=== PATIENT | female | born 1990 | race Two or more races ===

== ENCOUNTER 2018-09-27 06:50 | Inpatient (IN) | payer OTHER ==
[2018-09-27] MEDS ORDERED: CITRIC ACID/SODIUM CITRATE 30 ML UNIT-DOSE CUP PO ONE (07:30)
[2018-09-27] MEDS ORDERED: ELECTROLYTE-148 SOLN 1,000 ML IV SCH ×3 (07:30→09:15)
[2018-09-27] MEDS ORDERED: AMPICILLIN - 2 GM in SODIUM CHLORIDE 100 ML IVPB ONE (07:30)
[2018-09-27] MEDS ORDERED: AMPICILLIN SODIUM 2 GM VIAL ONE (07:38)
[2018-09-27 08:01] LABS: BASO % 0.3 % (0-2.0); EOS % 1.1 % (0-4.5); HEMATOCRIT 32.6 % (32.4-45.2); HEMOGLOBIN 11.2 GM/dL (10.7-15.3); LYMPH % 26.1 % (8-40); MCH 28.8 pg (25.7-33.7); MCHC 34.4 g/dl (32.0-36.0); MEAN CELL VOLUME 83.7 fl (80-96); MEAN PLT VOLUME 10.6 fl (7.5-11.1); MONO % 6.1 % (3.8-10.2); NEUT % 66.4 % (42.8-82.8); PLATELET COUNT 242 K/MM3 (134-434); RBC 3.89 M/mm3 (3.60-5.2); RDW 14.3 % (11.6-15.6); WHITE BLOOD COUNT 7.7 K/mm3 (4.0-10.0)
[2018-09-27 08:04] VITALS: BMI 39.6
[2018-09-27 08:17] LABS: ANION GAP 10 MMOL/L (8-16); BLOOD UREA NITROGEN 7 mg/dL (7-18); CALCIUM 8.3 mg/dL (8.5-10.1); CHLORIDE 109 mmol/L (98-107); CO2 21 mmol/L (21-32); CREATININE 0.6 mg/dL (0.55-1.3); GLUCOSE,RANDOM 100 mg/dL (74-106); POTASSIUM 4.3 mmol/L (3.5-5.1); SODIUM 141 mmol/L (136-145)
[2018-09-27 08:24] LABS: INR 0.93 (0.83-1.09)
[2018-09-27 08:26] LABS: ACTIVATED PTT 24.7 SECONDS (25.2-36.5)
[2018-09-27] MEDS ORDERED: OXYTOCIN 20 UNITS in 0.9% NS 40 UNIT/2,000 ML INFUS.BAG IV ONE (08:32)
[2018-09-27] MEDS ORDERED: morphine SULFATE/Preservative Free 0.5 MG/ML (1cc Syringe) ONE (08:34)
--- NOTE | 2018-09-27 09:03 | HP ---
Past Medical History - Primary Care Physician PCP:: Courtney Ashton - Admission Chief Complaint: 27yo P 0 @ 36.2 with PROM of twin A, clear, contructions; Twin A - Breech presentation History of Present Illness: 1. Di/Di spontaneous twins 2. Abnormal GCT - GTT one abnormal 3. Flu shot declined 4. Tdap recieved 5. GBS pending History Source: Patient, Medical Record Limitations to Obtaining History: No Limitations - Past Medical History ...: 3 ...Para: 0 ...Term: 0 ...: 0 ...Spon : 1 ...Induced : 1 ...Multiple Gestation: 0 ...LMP: 01/19/18 ... Weeks Gestation by Dates: 35.6 ...EDC by Dates: 10/26/18 ...EDC by Sono: 10/23/18 - Past Surgical History Past Surgical History: Yes: None Hx Myomectomy: No Hx Transabdominal Cerclage: No - Smoking History Smoking history: Never smoked Have you smoked in the past 12 months: No - Alcohol/Substance Use Hx Alcohol Use: No History of Substance Use: reports: None - Social History History of Recent Travel: No Home Medications - Allergies Allergies/Adverse Reactions: Allergies Allergy/AdvReac Type Severity Reaction Status Date / Time No Known Allergies Allergy Verified 09/27/18 07:33 - Home Medications Home Medications: Ambulatory Orders Vitamins (Sjr) - 1 tab PO DAILY 09/23/18 Family Disease History - Family Disease History Family Disease History: Diabetes: Mother, Other: Brother (seizure disorder) Other Family History: MGM breast CA, Lupus Review of Systems - Review of Systems Constitutional: reports: No Symptoms Eyes: reports: No Symptoms HENT: reports: No Symptoms Neck: reports: No Symptoms Cardiovascular: reports: No Symptoms Respiratory: reports: No Symptoms Gastrointestinal: reports: No Symptoms Genitourinary: reports: No Symptoms Breasts: reports: No Symptoms Reported Musculoskeletal: reports: No Symptoms Integumentary: reports: No Symptoms Neurological: reports: No Symptoms Endocrine: reports: No Symptoms Hematology/Lymphatic: reports: No Symptoms Psychiatric: reports: No Symptoms Physical Exam - Maternity Vital Signs: Vital Signs Temperature 98.5 F 09/27/18 07:45 Pulse Rate 103 H 09/27/18 07:45 Respiratory Rate 18 09/27/18 07:45 Blood Pressure 129/78 09/27/18 07:45 O2 Sat by Pulse Oximetry (%) Constitutional: Yes: Well Nourished, Obese Eyes: Yes: WNL, Conjunctiva Clear HENT: Yes: WNL, Atraumatic, Normocephalic Neck: Yes: WNL, Supple, Trachea Midline Cardiovascular: Yes: WNL, Regular Rate and Rhythm Lungs: Clear to auscultation Breast(s): Yes: WNL - Abdominal Exam/OB Fundal Height: 40 Number of Fetuses: Multiple Presentation: Breech, Twins Contractions: Yes Regularity: Irregular Intensity: Mild Monitor Mode: External Heart Rate (range): 140/140 Heart Rate Location: Midline Category: I Accelerations: Uniform Decelerations: None - Vaginal Exam/OB Vaginal Bleediing: No Speculum Exam: No Dilatation (cm): 3 Effacement (%): 50 Amniotic Membrane Status: Ruptured Nitrazine Test: Positive Amniotic Fluid: Yes: Clear Presentation: Lance Breech Station: -3 - Physical Exam Musculoskeletal: Yes: WNL Extremities: Yes: WNL Edema: No Integumentary: Yes: WNL ...Motor Strength: WNL Psychiatric: Yes: WNL, Alert, Oriented - Labs Lab Results: Opos/RI/NR/HepB-neg/HIV - neg/ GCT 154 - GTT neg CBC, BMP 09/27/18 07:45 09/27/18 07:45 Assessment/Plan 27yo P0 @ 36.2weeks with Br/Vtx twins, PROM in early labor Admit for primary C/S. The pt is not in labor. The fetus with Category I tracing. The decision was made to proceed with delivery by C/S. We discussed the risks and benefits of C/S at length, including but not limited to scarring, pain, bleeding, infection, injury to underlying organs and structures, need for additional surgery to repair/treat any problems or complications, complications/injuries, etc. The pt verbalized her understanding and requested to proceed with surgery NPO/IVF/Antibiotic prophylaxis/ Labs/Anesthesia aware.
[2018-09-27] MEDS ORDERED: GENTAMICIN SO4 80 MG/2 ML VIAL ONE (09:15)
[2018-09-27] MEDS ORDERED: PHENYLEPHRINE HCL 10 MG/1 ML SINGLE DOSE VIAL ONE (09:21)
[2018-09-27] MEDS ORDERED: OXYTOCIN 20 UNITS in 0.9% NS 20 UNIT/1,000 ML INFUS.BAG IV ONE ×2 (09:58→12:15)
[2018-09-27] MEDS ORDERED: ENOXAPARIN NA (PORCINE) 40 MG/0.4 ML DISP.SYRIN SQ SCH (10:00)
[2018-09-27] MEDS ORDERED: ONDANSETRON 4 MG/2 ML VIAL IVPUSH PRN (10:05)
[2018-09-27 10:58] LABS: ARTERIAL BLD GAS O2 SATURATION 20.8 % (90-98.9); ARTERIAL BLOOD GAS BASE EXCESS -1.5 meq/l (-2-2); ARTERIAL BLOOD GAS PCO2 55.3 mmHg (35-45); ARTERIAL BLOOD GAS pH 7.29 (7.35-7.45)
[2018-09-27 11:05] LABS: VENOUS PC02 47.7 mmHg (38-52); VENOUS PH 7.33 (7.32-7.42); VENOUS PO2 20.8 mmHg (28-48)
[2018-09-27 11:11] LABS: ARTERIAL BLOOD GAS PO2 15.4 mmHg (80-100)
[2018-09-27 11:14] LABS: ARTERIAL BLD GAS O2 SATURATION 41.2 % (90-98.9); ARTERIAL BLOOD GAS BASE EXCESS -2.7 meq/l (-2-2); ARTERIAL BLOOD GAS PCO2 43.2 mmHg (35-45); ARTERIAL BLOOD GAS pH 7.34 (7.35-7.45)
[2018-09-27] MEDS ORDERED: diphenhydrAMINE HCL 25 MG CAPSULE (FP) PO PRN (11:22)
[2018-09-27] MEDS ORDERED: oxyCODONE HCL 5 MG TABLET PO PRN (11:22)
[2018-09-27] MEDS ORDERED: IBUPROFEN 800 MG/8 ML IJ IVPB PRN (11:22)
[2018-09-27] MEDS ORDERED: METHYLERGONOVINE MALEATE 0.2 MG/1 ML AMP IM PRN (11:22)
--- NOTE | 2018-09-27 11:22 | OP ---
Operative Note - Note: Operative Date: 09/27/18 Pre-Operative Diagnosis: 27yo P0 @ 36.2 with twins, PROM in labor, Breech/Vertex Operation: Primary c/section Findings: Twin A Breech Twin B Vertex Normal bilateral tubes and ovaries Post-Operative Diagnosis: Same as Pre-op Surgeon: Courtney Ashton Print Developer Automatic: Fermin Salcedo Anesthesiologist/PIG MACHINE OPERATOR: [place] Anesthesia: Spinal Specimens Removed: Twin A breech. Twin B vertex. Twin Placenta Estimated Blood Loss (mls): 600 Drains, Volume Out (mls): 200 Fluid Volume Replaced (mls): 1,700 Operative Report Dictated: Yes
[2018-09-27 11:26] LABS: ARTERIAL BLOOD GAS PO2 17.8 mmHg (80-100)
--- NOTE | 2018-09-27 11:26 | PN ---
Delivery - Delivery Section: Primary Type of Anesthesia: Spinal Episiotomy/Laceration: None EBL (cc): 600 Delivery, Single - Stages of Labor Date of Delivery: 09/27/18 Date Placenta Delivered: 09/27/18 Placenta: Yes: Expressed - Condition of Infant Drop Wire Operator/Manager Bar Present: Yes Infant Gender: Male (x2) Position: OA (Sacrum posterior twin A Occiput anterior twin B), SP - 1 Minute Total Score: 9 5 Minutes Total Score: 9 - [place] Feeding Plan Initial Plan: Elected not to breastfeed exclusively throughout hospitalization Benefits of Exclusively reinforced: Yes Delivery, Multiple Births - Stages of Labor Delivery Baby "A" Date: 09/27/18 Time: 09:20 Delivery Baby "B" Date: 09/27/18 Time: 09:22 Placenta/Membranes "A" Date: 09/27/18 Time: 09:23 Placenta/Membranes "B" Date: 09/27/18 Time: 09:23 - Condition of Multiple Births 1 (A) Drop Wire Operator/Manager Bar Present: Yes Drop Wire Operator: Dangelo Whittington Infant Gender: Male Weight: 4 lb 15 oz Total Hours ROM (HRS/MINS): 3/50 Placenta: Yes: Expressed 2 (B) Weight: 5 lb 8 oz Placenta: Yes: Expressed - 1 (A) 1 Minute Score: 9 1 (A) 5 Minutes Score: 9 [place] 2 (B) 1 Minute Score: 9 [place] 2 (B) 5 Minutes Score: 9 Remarks - Remarks Remarks: Uncomplicated delivery of twin A and twin B Peds present
[2018-09-27 11:27] LABS: VENOUS PC02 44.7 mmHg (38-52); VENOUS PH 7.34 (7.32-7.42)
[2018-09-27] MEDS ORDERED: DEXTROSE 5%-LACTATED RINGERS 1,000 ML IV SCH (11:30)
[2018-09-27] MEDS ORDERED: OXYTOCIN 20 UNITS in 0.9% NS 20 UNIT/1,000 ML INFUS.BAG IV SCH (11:30)
[2018-09-27] MEDS ORDERED: TUBERCULIN PPD 5 TU/0.1ML SYRINGE (IN PATIENT USE ONLY) ID ONE (14:15)
[2018-09-27] MEDS: CEFAZOLIN 1 GM/D5W 1 GM/50 ML BAG IVPB SCH (17:26)
--- NOTE | 2018-09-27 23:47 | OP ---
DATE OF OPERATION: 09/27/2018 PREOPERATIVE DIAGNOSIS: A 27-year-old, para 0, at 36.2 weeks with di-di twin gestation with premature rupture of membranes, in early labor, breech vertex presentation, obesity. OPERATION: Primary section. FINDINGS: Twin A breech, twin B vertex. Normal bilateral tubes and ovaries. POSTOPERATIVE DIAGNOSIS: A 27-year-old, para 0, at 36.2 weeks with di-di twin gestation with premature rupture of membranes, in early labor, breech vertex presentation, obesity. SURGEON: Courtney Ashton MD MANAGER CAMP: Fermin Salcedo MD ANESTHESIOLOGIST: [place] MD ANESTHESIA: Spinal. SPECIMENS REMOVED: Twin placenta. DESCRIPTION OF PROCEDURE: After assuring informed consent, the patient was brought to the operating room where she was placed in the dorsal supine position with left lateral tilt. Abdomen was prepped and draped in the sterile fashion. Pfannenstiel skin incision was created with a scalpel after assuring an adequate level of anesthesia. The incision was carried down to the level of the fascia with the scalpel. Fascia was nicked at the midline and fascial incision was extended bilaterally with Bovie cautery. Fascia was dissected off of the rectus abdominis muscle with the Bovie cautery superiorly and inferiorly. Muscle was split in the midline. Peritoneum was identified and entered bluntly. Dissected superiorly and inferiorly and retracted with Valders. A vesicouterine peritoneum was identified, tented, and dissected off of the anterior uterine wall. The bladder flap was created and retracted with the lower edge of the Brianna. The bilateral gutters were packed. Uterine incision was carried out with scalpel and dissected bilaterally with bandage scissors. Twin A was found to be in breech presentation, sacrum anterior. Sacrum was delivered atraumatically and was complete breech. Shoulders were delivered without any difficulty. Head was flexed and the 's head was delivered atraumatically. The cord was clamped and cut. The , male, was handed to the awaiting manager procurement. The baby B vertex presentation, the amniotic sac was ruptured and the was delivered without any difficulty, head and the entire body. Cord clamped and cut. Handed to awaiting manager procurement. The cord was sent for gasses. Placenta was expressed. Uterus was cleared of all clots and debris and repaired with 0 Biosyn in 2 layers, second layer was imbricating layer to cover the initial first layer. The gutters were cleared of clots and debris. Abdomen was irrigated. Normal tubes and ovaries were noted bilaterally. The peritoneum was repaired with 0 Biosyn. Muscle was reapproximated at the midline with 0 Biosyn. The fascia was closed with 0 Vicryl in running fashion. Skin and subcutaneous tissues were brought together with 2-0 Vicryl to decrease the space and decrease risk of infection. Skin was subsequently closed with a V-Loc suture, subcutaneous running stitch. All instruments and sponges were counted and count was correct x2. Estimated blood loss was 600 mL. Patient received 1700 mL of IV fluids and put out 200 mL of urine. Sponge and instrument count correct x 2. Patient was subsequently expressed and brought to the recovery room in stable condition. Mae [id number] MTDD
[2018-09-28] MEDS: CEFAZOLIN 1 GM/D5W 1 GM/50 ML BAG IVPB SCH (01:27)
[2018-09-28] MEDS: SIMETHICONE 80 MG TAB.CHEW (FP) PO PRN ×3 (04:27→19:42)
[2018-09-28] MEDS: IBUPROFEN 600 MG TABLET (FP) PO PRN (04:27)
[2018-09-28] MEDS: ACETAMINOPHEN 325 MG TABLET (FP) PO PRN ×3 (04:27→19:42)
[2018-09-28 07:31] LABS: BASO % 0.5 % (0-2.0); EOS % 0.5 % (0-4.5); HEMATOCRIT 31.6 % (32.4-45.2); HEMOGLOBIN 10.7 GM/dL (10.7-15.3); LYMPH % 12.1 % (8-40); MCH 28.4 pg (25.7-33.7); MCHC 33.9 g/dl (32.0-36.0); MEAN CELL VOLUME 83.8 fl (80-96); MEAN PLT VOLUME 10.6 fl (7.5-11.1); MONO % 6.1 % (3.8-10.2); NEUT % 80.8 % (42.8-82.8); PLATELET COUNT 204 K/MM3 (134-434); RBC 3.77 M/mm3 (3.60-5.2); RDW 14.3 % (11.6-15.6); WHITE BLOOD COUNT 10.3 K/mm3 (4.0-10.0)
--- NOTE | 2018-09-28 10:03 | PN ---
Progress Note (short form) - Note Progress Note: Post op day#1.S/P C Section under spinal anesthesia with duramorph uneventful.Patient stable and c/o some pain for which she is on medication.No any anesthesia related problem.Patient DC from the anesthesia care.
[2018-09-28] MEDS: ENOXAPARIN NA (PORCINE) 40 MG/0.4 ML DISP.SYRIN SQ SCH (10:37)
[2018-09-28] MEDS ORDERED: BISACODYL 10 MG SUPP.RECT RC PRN (11:23)
[2018-09-28] MEDS: oxyCODONE HCL 5 MG TABLET PO PRN ×2 (13:56→19:42)
--- NOTE | 2018-09-28 16:22 | PN ---
Post Progress Note - Subjective Subjective: No complaints, ambulating, had flatus Post Day: 1 Type of Delivery: Primary C/S Vital Signs: Vital Signs Temperature 98.2 F 09/28/18 14:00 Pulse Rate 93 H 09/28/18 14:00 Respiratory Rate 18 09/28/18 14:00 Blood Pressure 128/74 09/28/18 14:00 O2 Sat by Pulse Oximetry (%) 100 09/27/18 11:15 Breast Exam: Yes: Soft Uterus: Yes: Fundus Firm Incision: Yes: Dressing dry and intact Abdomen/GI: Yes: Abdomen soft, Passing flatus, Tolerating PO Lochia: Yes: Rubra Lochia, amount: Small Extremities: Yes: Calves non-tender, Edema (trace) Perineum: Yes: Intact Activity: Ambulating - Labs Labs: CBC WBC 10.3 K/mm3 (4.0-10.0) H 09/28/18 06:45 RBC 3.77 M/mm3 (3.60-5.2) 09/28/18 06:45 Hgb 10.7 GM/dL (10.7-15.3) 09/28/18 06:45 Hct 31.6 % (32.4-45.2) L 09/28/18 06:45 MCV 83.8 fl (80-96) 09/28/18 06:45 MCH 28.4 pg (25.7-33.7) 09/28/18 06:45 MCHC 33.9 g/dl (32.0-36.0) 09/28/18 06:45 RDW 14.3 % (11.6-15.6) 09/28/18 06:45 Plt Count 204 K/MM3 (134-434) 09/28/18 06:45 MPV 10.6 fl (7.5-11.1) 09/28/18 06:45 Absolute Neuts (auto) 8.4 K/mm3 (1.5-8.0) H 09/28/18 06:45 Neutrophils % 80.8 % (42.8-82.8) D 09/28/18 06:45 Lymphocytes % 12.1 % (8-40) D 09/28/18 06:45 Monocytes % 6.1 % (3.8-10.2) 09/28/18 06:45 Eosinophils % 0.5 % (0-4.5) 09/28/18 06:45 Basophils % 0.5 % (0-2.0) 09/28/18 06:45 Nucleated RBC % 0 % (0-0) 09/28/18 06:45 Assessment/Plan 27yo P1 s/p primary LT C/S, doing well stable, afebrile. Asymptomatic for anemia. care instructions reviewed. Continue routine postop care. Ambulation encouraged.
[2018-09-29] MEDS: SIMETHICONE 80 MG TAB.CHEW (FP) PO PRN ×3 (05:27→22:05)
[2018-09-29] MEDS: oxyCODONE HCL 5 MG TABLET PO PRN ×2 (05:27→22:04)
[2018-09-29] MEDS: ACETAMINOPHEN 325 MG TABLET (FP) PO PRN ×3 (05:28→22:04)
--- NOTE | 2018-09-29 07:12 | PN ---
Post Progress Note - Subjective Subjective: Patient without acute complaints. Reports tolerating oral intake without nausea or vomiting. Ambulating without dizziness. Denies fevers or chills. Pain well controlled with oral pain medication. Patient is not . Passing flatus. Post Day: 2 Type of Delivery: Primary C/S Vital Signs: Vital Signs Temperature 97.4 F L 09/28/18 20:23 Pulse Rate 106 H 09/28/18 20:23 Respiratory Rate 20 09/28/18 20:23 Blood Pressure 136/92 09/28/18 20:23 O2 Sat by Pulse Oximetry (%) 100 09/27/18 11:15 Breast Exam: Yes: Soft Uterus: Yes: Fundus Firm Incision: Yes: Sutures intact. No: Redness, Oozing Abdomen/GI: Yes: Abdomen soft, Tender (mild incisional), Passing flatus Lochia: Yes: Rubra, Serosa Extremities: Yes: Edema (+1) Activity: Ambulating - Labs Labs: CBC WBC 10.3 K/mm3 (4.0-10.0) H 09/28/18 06:45 RBC 3.77 M/mm3 (3.60-5.2) 09/28/18 06:45 Hgb 10.7 GM/dL (10.7-15.3) 09/28/18 06:45 Hct 31.6 % (32.4-45.2) L 09/28/18 06:45 MCV 83.8 fl (80-96) 09/28/18 06:45 MCH 28.4 pg (25.7-33.7) 09/28/18 06:45 MCHC 33.9 g/dl (32.0-36.0) 09/28/18 06:45 RDW 14.3 % (11.6-15.6) 09/28/18 06:45 Plt Count 204 K/MM3 (134-434) 09/28/18 06:45 MPV 10.6 fl (7.5-11.1) 09/28/18 06:45 Absolute Neuts (auto) 8.4 K/mm3 (1.5-8.0) H 09/28/18 06:45 Neutrophils % 80.8 % (42.8-82.8) D 09/28/18 06:45 Lymphocytes % 12.1 % (8-40) D 09/28/18 06:45 Monocytes % 6.1 % (3.8-10.2) 09/28/18 06:45 Eosinophils % 0.5 % (0-4.5) 09/28/18 06:45 Basophils % 0.5 % (0-2.0) 09/28/18 06:45 Nucleated RBC % 0 % (0-0) 09/28/18 06:45 Assessment/Plan 27 yo POD # 2 s/p CD, afebrile, vital signs stable, doing well 1. Continue routine postoperative care. 2. Encourage ambulation and incentive spirometer use 3. Continue oral pain medication 4. Anticipate discharge home postoperative day #3 or #4
[2018-09-29] MEDS: ENOXAPARIN NA (PORCINE) 40 MG/0.4 ML DISP.SYRIN SQ SCH (10:05)
[2018-09-29] MEDS: IBUPROFEN 600 MG TABLET (FP) PO PRN (12:20)
[2018-09-29] MEDS ORDERED: SENNOSIDES/DOCUSATE COMBO (SENNA PLUS) TABLET (UD) PO PRN (22:00)
[2018-09-30 07:12] LABS: BASO % 0.4 % (0-2.0); HEMATOCRIT 30.6 % (32.4-45.2); HEMOGLOBIN 10.3 GM/dL (10.7-15.3); MCH 28.5 pg (25.7-33.7); MCHC 33.7 g/dl (32.0-36.0); MEAN CELL VOLUME 84.7 fl (80-96); MEAN PLT VOLUME 9.4 fl (7.5-11.1); MONO % 6.8 % (3.8-10.2); NEUT % 67.8 % (42.8-82.8); PLATELET COUNT 251 K/MM3 (134-434); RBC 3.62 M/mm3 (3.60-5.2); RDW 14.7 % (11.6-15.6)
--- NOTE | 2018-09-30 07:48 | PN ---
Progress Note (short form) - Note Progress Note: pod 3 s/p c/s , twins ambulating, passing gas has multiple fever blister on her upper lip CBC, BMP 09/30/18 06:00 09/27/18 07:45 Last Vital Signs Temp Pulse Resp BP Pulse Ox 98.6 F 92 H 20 117/69 100 09/29/18 20:42 09/29/18 20:42 09/29/18 20:42 09/29/18 20:42 09/27/18 11:15 abdomen soft, no distension, no cva incision dry, clean , healing well no calf tenderness lochia mild plan ambulate , pain management, acyclovir wants to go home today
[2018-09-30 08:29] VITALS: BP 130/79; PULSE 93; TEMP 98.2
--- NOTE | 2018-09-30 08:32 | DS ---
Physical Exam-LINUX SECURITY ADMINISTRATOR Vital Signs: Vital Signs Temperature 98.2 F 09/30/18 08:27 Pulse Rate 93 H 09/30/18 08:27 Respiratory Rate 20 09/30/18 08:27 Blood Pressure 130/79 09/30/18 08:27 O2 Sat by Pulse Oximetry (%) 100 09/27/18 11:15 Constitutional: Yes: Well Nourished, No Distress, Calm Eyes: Yes: WNL, Conjunctiva Clear, EOM Intact HENT: Yes: WNL, Atraumatic, Normocephalic Neck: Yes: WNL, Supple, Trachea Midline Cardiovascular: Yes: WNL, Regular Rate and Rhythm Respiratory: Yes: WNL, Regular, CTA Bilaterally Gastrointestinal: Yes: WNL ...Rectal Exam: Yes: WNL Renal/: Yes: WNL ....Post : Yes: Uterus firm, Uterus non-tender, Slight lochia rubra Breast(s): Yes: WNL Musculoskeletal: Yes: WNL Extremities: Yes: WNL Edema: LLE: Trace, RLE: Trace Integumentary: Yes: WNL Wound/Incision: Yes: Clean/Dry, Well Approximated, Sutures Intact Neurological: Yes: WNL, Alert, Oriented ...Motor Strength: WNL Psychiatric: Yes: WNL, Alert, Oriented Labs: CBC, BMP 09/30/18 06:00 09/27/18 07:45 Delivery - Delivery Section: Primary Type of Anesthesia: Spinal Episiotomy/Laceration: None EBL (cc): 600 Delivery, Single - Stages of Labor Date of Delivery: 09/27/18 Placenta: Yes: Expressed - Condition of Cook Chief/Plisse Machine Operator Present: Yes Infant Gender: Male (x2) Position: OA (Sacrum posterior twin A Occiput anterior twin B), SP - 1 Minute Total Score: 9 5 Minutes Total Score: 9 - Feeding Plan Initial Plan: Elected not to breastfeed exclusively throughout hospitalization Benefits of Exclusively reinforced: Yes Delivery, Multiple Births - Stages of Labor Delivery Baby "A" Date: 09/27/18 Time: 09:20 Placenta/Membranes "A" Date: 09/27/18 Time: 09:23 Delivery Baby "B" Date: 09/27/18 Time: 09:22 Placenta/Membranes "B" Date: 09/27/18 Time: 09:23 - Condition of Multiple Births [place] 1 (A) Cook Chief/Plisse Machine Operator Present: Yes Cook Chief: Dangelo Whittington Gender: Male Weight: 4 lb 15 oz Total Hours ROM (HRS/MINS): 3/50 2 (B) Weight: 5 lb 8 oz - 1 (A) 1 Minute Score: 9 1 (A) 5 Minutes Score: 9 [place] 2 (B) 1 Minute Score: 9 2 (B) 5 Minutes Score: 9 Discharge Summary Reason For Visit: LABOR ASSESS Procedures: Principal: primary LST c/s Hospital Course: had fever blister on her lip Condition: Good - Instructions Diet, Activity, Other Instructions: regular diet, follow up office 1 week, if fever, pain, heavy vaginal bleeding call MD Referrals: Courtney Ashton MD [Staff Physician] - Disposition: HOME - Home Medications Comprehensive Discharge Medication List: Ambulatory Orders Vitamins (Sjr) - 1 tab PO DAILY 09/23/18 Acyclovir [Zovirax -] 200 mg PO 5XD #25 capsule 09/30/18 Ibuprofen [Motrin -] 600 mg PO TID #90 tablet 09/30/18
[2018-09-30] MEDS: ENOXAPARIN NA (PORCINE) 40 MG/0.4 ML DISP.SYRIN SQ SCH (10:08)
--- NOTE | 2018-10-07 20:34 | PATH ---
Surgical Pathology Report Patient Name: DONITA ABREU Med. Rec. #: [id number] /Age/Gender: 1990 (Age: 27) / F Account: [id number] Location: [facility] OBS/[address] RAILWAY Taken: 09/27/2018 Received: 09/28/2018 Reported: 10/07/2018 Physicians: Courtney Ashton M.D. Specimen(s) Received PLACENTA Clinical History , 36.2 weeks, twin gestation-malpresentation PROM in labor DL/10/06/2018 Final Diagnosis TWIN PLACENTA, SECTION: 831 G DICHORIONIC DIAMNIOTIC FUSED DISC THIRD TRIMESTER TWIN PLACENTAS WITH TRIVASCULAR UMBILICAL CORDS (2) AND UNREMARKABLE PLACENTAL MEMBRANES. Electronically Signed Poppy Kahn M.D. Gross Description Received in formalin labeled "placenta," is a twin placenta comprised of 2 fused discs by dividing membranes. There is 1 clamp marking the umbilical cord of placenta "A" and 2 clamps marking the umbilical cord of placenta "B," per the surgeon. The placenta is 831 g and measures 25.0 x 17.5 x 2.9 cm. The dividing membranes are whitfield and opaque. The membranes of placenta "A" and "B" are whitfield, translucent with focal opacities and insert marginally. The umbilical cord of placenta "A" measures 14 cm in length and averages 1.1 cm in diameter. The cord inserts eccentrically, 3.5 cm to the nearest margin. No true knots or strictures are identified. Cut surface of the umbilical cord reveals 3 vessels. The umbilical cord of placenta "B" measures 11 cm in length and averages 1.1 cm in diameter. The cord inserts eccentrically, 5 cm to the nearest margin. No true knots or strictures are identified. Cut surface of the umbilical cord reveals 3 vessels. The surface is whitfield blue with minimal fibrin deposition and appropriate caliber vessels. The maternal surface is red-brown with focal defects. Sectioning reveals red-brown, spongy parenchyma. No lesions are identified. Revenue Cycle Administrator sections are submitted in 7 cassettes as follows: 1-placenta "A" membrane rolls and umbilical cord; 2-3-full thickness sections of placenta "A"; 4-dividing membranes; 5-placenta "B" membrane rolls and umbilical cord; 6-7-full thickness sections of placenta "B" DL10/06/2018 [place]10/06/2018
== END 2018-09-30 11:30 | disposition home or self-care (01) | DRG 540 ==
LOC: JDEL 06:50 → JLDR 07:25 → J3W 12:10
PROVIDERS: ADMIT Obstetrics & Gynecology; ATTEND Obstetrics & Gynecology
PROC: 10D00Z1 Extraction of Products of Conception, Low, Open Approach (ICD-10-PCS; principal; 2018-09-27)
DX: O60.14X0 Preterm labor third trimester with preterm delivery third trimester, not applicable or unspecified (principal); O30.043 Twin pregnancy, dichorionic/diamniotic, third trimester; Z37.2 Twins, both liveborn; O32.1XX0 Maternal care for breech presentation, not applicable or unspecified; Z3A.36 36 weeks gestation of pregnancy
CPT/HCPCS: 36415; 36600; 80048; 82803; 85025; 85610; 85730; 86593; 86850; 86900; 86901; 88307-TC; 94010